=== PATIENT | female | born 1975 | race Caucasian/White ===

== ENCOUNTER 2020-06-06 22:23 | Observation (INO) | payer OTHER, SELFPAY ==
--- NOTE | ~2020-06-06 | CT_ITS ---
EXAMINATION: CT abdomen pelvis w con DATE: 06/07/2020 00:35 INDICATION: Right lower quadrant abdominal pain. Nausea, vomiting, and diarrhea. TECHNIQUE: Computed tomography (CT) of the abdomen and pelvis was performed with 100 mL Omnipaque 350 intravenous contrast. Automated exposure control and iterative reconstruction technique were employe d. The dose-length product was 1231.16 mGy-cm. COMPARISON: None. FINDINGS: The visualized portions of the lung bases are clear without pneumonia or pleural effusion. The heart size is normal. No pericardial effusion. The liver is normal. There are changes of cholecys tectomy. The spleen, pancreas, adrenal glands, and kidneys are normal. There are multiple appendicoli ths in the appendix, which is fluid-filled and dilated to 12 mm with adjacent fat stranding, consiste nt with appendicitis. There is trace ascites in right paracolic gutter. There are no pathologically e nlarged lymph nodes. There is a 14 mm uterine fibroid. There is mild lumbar spondylosis. IMPRESSION: 1. Acute appendicitis. Reviewed, dictated and finalized at location A. [employer] IMPRESSION: 1. Acute appendicitis.
[2020-06-06 22:30] VITALS: BP 119/86; PULSE 78; RESP 22; TEMP 36.8; O2SAT 100
[2020-06-06 23:02] LABS: Basophils Absolute Auto 0.1 K/mm3 (0.0-0.1); Basophils Percent Auto 0.3 % (0.2-1.2); Eosinophils Absolute Auto 0.1 K/mm3 (0-0.3); Eosinophils Percent Auto 0.5 % (0-4.4); Hematocrit 38.6 % (37.0-47.0); Hemoglobin 12.6 g/dL (12.0-15.0); Immature Granulocyte Absolute 0.09 K/mm3 (0.00-0.031); Immature Granulocyte Percent A 0.5 % (0-0.5); Lymphocytes Absolute Auto 2.32 K/mm3 (0.9-3.2); Lymphocytes Percent Auto 12.2 % (18.3-44.2); Mean Corpuscular HGB Conc 32.6 g/dl (32-36); Mean Corpuscular Hemoglobin 29.6 pg (26-34); Mean Corpuscular Volume 90.6 fl (80-100); Monocytes Absolute Auto 1.1 K/mm3 (0.1-0.6); Monocytes Percent Auto 5.8 % (2.6-8.5); Neutrophils Absolute Auto 15.3 K/mm3 (1.3-6.7); Neutrophils Percent Auto 80.7 % (45.5-73.1); Platelet Count Result 302 k/mm3 (150-375); Red Blood Count 4.26 M/mm3 (4.2-5.4); Red Cell Distribution Width 12.7 % (11.5-14.5); White Blood Count 18.9 K/mm3 (4.5-10.0)
[2020-06-06] MEDS: MORPHINE SULFATE (*CRX) 4 MG/ML INJ IV PUSH (23:05)
[2020-06-06] MEDS: SODIUM CHLORIDE 0.9% IV 1,000 ML 999 ML IV CONT (23:07)
[2020-06-06] MEDS: ONDANSETRON INJ 4 MG/2 ML VIAL IV PUSH (23:07)
[2020-06-06 23:09] VITALS: BP 104/70; PULSE 82; RESP 18; O2SAT 100
[2020-06-06 23:17] LABS: Alanine Aminotransferase 19 U/L (4-35); Albumin Level 4.3 g/dL (3.5-5.1); Alkaline Phosphatase 49 U/L (38-126); Anion Gap 8 mmol/L (8-16); Aspartate Amino Transferase 33 U/L (14-36); Bilirubin,Total 0.2 mg/dL (0.2-1.3); Blood Urea Nitrogen 14 mg/dL (7-17); Calcium 8.9 mg/dL (8.4-10.2); Carbon Dioxide 28 mmol/L (22-30); Chloride 100 mmol/L (98-107); Estimated CRCL calculation 58 ml/min; Estimated Glomerular Filt Rate > 60; Glucose 110 mg/dL (65-105); Lipase 71 U/L (23-300); Potassium 3.5 mmol/L (3.4-5.0); Sodium 136 mmol/L (137-145)
[2020-06-07] VITALS (12 sets, daily range): BP systolic 97–120; BP diastolic 49–72; PULSE 68–100; RESP 14–24; TEMP 36.1–37.1; O2SAT 94–100; BMI 26.4
[2020-06-07 00:34] LABS: Add Urine Microscopic? YES; Appearance Urine Clear (Clear); Bacteria Urine Trace /hpf; Bilirubin Urine Negative (Negative); Blood Urine Negative (Negative); Color Urine Straw (Yellow); Glucose Urine UA Negative (Negative); Ketones Urine Trace mg/dL (Negative); Leukocyte Esterase Ur Negative LEU/UL (Negative); Mucus Urine Rare /lpf; Nitrate Urine Negative (Negative); Protein Urine Negative (Negative); Specific Grav Ur 1.014 (1.001-1.035); Squamous Epithelial Cell Urine Rare /hpf (Few); Urobilinogen Urine Negative mg/dL (<2.0); WBC Urine 0-3 /hpf
[2020-06-07] MEDS: ONDANSETRON INJ 4 MG/2 ML VIAL IV PUSH (00:40)
[2020-06-07] MEDS: HYDROmorphone HCL INJ (*CRX) 1 MG/ML SYR IV PUSH (00:41)
--- NOTE | 2020-06-07 01:31 | ED.ABDPAIN ---
HPI - Abdominal Pain General Chief Complaint: Abdominal Pain Stated Complaint: abdominal pain Time Seen by Provider: 06/06/20 22:43 History of Present Illness HPI narrative: Patient is a 45-year-old female presents to the emergency department with a chief complaint of abdominal pain. Patient states that the pain has been pain throughout her abdomen started today states is now localized worse to the right lower quadrant. The patient states that she is not able to get comfortable whenever she gets any kind of bumps or movement that the pain is worse. Patient reports that she is had some diarrhea with this that she had a bit of nausea but no vomiting. Patient denies any other symptoms of chest pain shortness of breath denies fever denies chills. Patient states she last ate around 5 PM. The patient reports she has prior surgical history significant for cholecystectomy and she has had an ovary removed in the past. Related Data Allergies Allergy/AdvReac Type Severity Reaction Status Date / Time nitrofurantoin Allergy Mild Rash Verified 12/22/17 09:43 sulfamethoxazole Allergy Mild Rash Verified 12/22/17 09:43 trimethoprim Allergy Mild Rash Verified 12/22/17 09:43 Review of Systems Review of Systems: Narrative: CONSTITUTIONAL: Denies fever, chills, or sweats. EYES: Denies visual changes, redness, or discharge. ENT: Denies rhinorrhea, congestion, sore throat, or otalgia. CARDIOVASCULAR: Denies chest pain, palpitations, or edema. RESPIRATORY: Denies cough or dyspnea. GASTROINTESTINAL: Denies abdominal pain, nausea, vomiting, or diarrhea. GENITOURINARY: Denies dysuria or hematuria. SKIN: Denies rash or itching. MUSCULOSKELETAL: Denies back pain, joint pain, or myalgia. NEUROLOGIC: Denies headache, numbness, or weakness. PSYCHIATRIC: Denies anxiety or depression. A 10 system review of systems was completed on the patient and is negative except for what is stated in the HPI. Nursing and ancillary documentation was reviewed. PMFSH Social History Social History Gender identity (if verbalized by the patient): Female Comments Patient reports no significant past medical history History patient is had a cholecystectomy and a oophorectomy Social history patient denies illicit drug use Exam Narrative: Exam Narrative: GENERAL: Well-appearing, well-nourished, and in no acute distress. HEAD: Normocephalic, atraumatic. EYES: PERRLA and EOMI. ENT: Nares clear, no rhinorrhea or epistaxis. Mucous membranes moist. NECK: Supple. CHEST: Clear to auscultation. No respiratory distress. HEART: Regular rate and rhythm. No murmur heard. Normal peripheral pulses. ABDOMEN: Soft, tender to palpation in the right lower quadrant there is a slight rebound present, nondistended, normal active bowel sounds. EXTREMITIES: Normal range of motion. No edema. SKIN: Warm, dry, no rash. NEURO: No focal deficits. Alert and oriented x3. PSYCH: Normal mood and affect. Course Course Emergency Course: Patient's laboratory studies showed a white blood cell count of 18,000. CT scan of the abdomen pelvis showed evidence of acute appendicitis. Patient's pain was initially treated with IV morphine but had limited success with that she was given a milligram of IV Dilaudid which has had significant improvement in the patient's pain. Patient's nausea was controlled with IV Zofran. Patient was started on IV Zosyn in the emergency department the case was discussed with the general surgeon on-call and the patient was admitted to the surgical service for planned appendectomy tomorrow Vital Signs Vital signs: Vital Signs Temperature 36.8 C 06/06/20 22:30 Pulse Rate 78 06/06/20 22:30 Respiratory Rate 22 H 06/06/20 22:30 Blood Pressure 119/86 06/06/20 22:30 Pulse Oximetry 100 06/06/20 22:30 Temperature 36.8 C 06/06/20 22:30 Pulse Rate 81 06/07/20 01:24 Respiratory Rate 16 06/07/20 01:24 Blood Pressure 111/72 06/07/20 01:24 Pulse Oximetry 1
--- NOTE | 2020-06-07 01:55 | PC.NURSE ---
This patient, Lindy Jimenez, was admitted to Medical Room 347-. Patient/family oriented to hospital policies and general routines including ID bracelet, bed and alarms, visiting hours, pain management, procedures, bathroom and other care routines, personal items, smoking policy, room service/diet, and visiting hours. Information on how to activate the Rapid Response Team has been discussed. Patient/Family are encouraged to report perceived risks to care and to ask questions if they do not understand what they are told or what they should do.
[2020-06-07] MEDS: HYDROmorphone HCL INJ (*CRX) 1 MG/ML SYR 0.5 MG IV PUSH ×2 (03:27→06:56)
--- NOTE | 2020-06-07 06:29 | WPDANESEPP ---
Anes - Eval Pre Procedure Procedure: Laparoscopic appendectomy Date/Time: 06/07/20 06:29 Surgeon: Isma Pre Op Diagnosis: Acute appendicitis Patient Data Age: 45 Gender: F Height: 5 ft 1 in Weight: 63.3 kg Last Vital Signs Temp 98.4 F 06/07/20 02:10 Pulse 70 06/07/20 02:10 Resp 14 06/07/20 02:10 BP 114/68 06/07/20 02:10 Pulse Ox 100 06/07/20 02:10 Allergies Allergy/AdvReac Type Severity Reaction Status Date / Time nitrofurantoin Allergy Mild Nausea and Verified 06/07/20 02:30 Vomiting sulfamethoxazole Allergy Mild Nausea and Verified 06/07/20 02:30 Vomiting trimethoprim Allergy Mild Nausea and Verified 06/07/20 02:30 Vomiting Home Medications Medication Instructions Recorded Confirmed Type alprazolam 0.25 mg PO QID PRN 06/07/20 06/07/20 History bupropion HCl 150 mg PO QAM 06/07/20 06/07/20 History buspirone 10 mg PO TIDWMEAL 06/07/20 06/07/20 History drospirenone-ethinyl estradiol 1 tablet PO DAILY 06/07/20 06/07/20 History [Zainab] ergocalciferol (vitamin D2) 50,000 unit PO 2XW 06/07/20 06/07/20 History [Vitamin D2] escitalopram oxalate 20 mg PO DAILY 06/07/20 06/07/20 History liothyronine 50 mcg PO DAILY 06/07/20 06/07/20 History lisdexamfetamine [Vyvanse] 60 mg PO DAILY 06/07/20 06/07/20 History metoprolol tartrate 12.5 mg PO DAILY 06/07/20 06/07/20 History montelukast 10 mg PO DAILY 06/07/20 06/07/20 History thyroid (pork) [Verbena Thyroid] 90 mg PO DAILY 06/07/20 06/07/20 History trazodone 50 mg PO HS 06/07/20 06/07/20 History Laboratory Tests 06/06/20 06/06/20 06/07/20 22:57 22:57 00:19 WBC 18.9 K/mm3 H K/mm3 (4.5-10.0) RBC 4.26 M/mm3 M/mm3 (4.2-5.4) Hgb 12.6 g/dL g/dL (12.0-15.0) Hct 38.6 % % (37.0-47.0) MCV 90.6 fl fl (80-100) MCH 29.6 pg pg (26-34) MCHC 32.6 g/dl g/dl (32-36) RDW 12.7 % % (11.5-14.5) Plt Count 302 k/mm3 k/mm3 (150-375) MPV 9.0 fl fl (7.4-10.4) Immature Gran % (Auto) 0.5 % % (0-0.5) Neut % (Auto) 80.7 % H % (45.5-73.1) Lymph % (Auto) 12.2 % L % (18.3-44.2) [place] % (Auto) 5.8 % % (2.6-8.5) Eos % (Auto) 0.5 % % (0-4.4) Baso % (Auto) 0.3 % % (0.2-1.2) Lymph # (Auto) 2.32 K/mm3 K/mm3 (0.9-3.2) [place] # (Auto) 1.1 K/mm3 H K/mm3 (0.1-0.6) Eos # (Auto) 0.1 K/mm3 K/mm3 (0-0.3) Baso # (Auto) 0.1 K/mm3 K/mm3 (0.0-0.1) Abs Immat Gran (auto) 0.09 K/mm3 H K/mm3 (0.00-0.031) Absolute Neuts (auto) 15.3 K/mm3 H K/mm3 (1.3-6.7) Absolute Nucleated RBC 0.0 K/mm3 K/mm3 (0.0-0.012) Nucleated RBC % 0.0 % % (0.0-0.2) Sodium 136 mmol/L L mmol/L (137-145) Potassium 3.5 mmol/L mmol/L (3.4-5.0) Chloride 100 mmol/L mmol/L (98-107) Carbon Dioxide 28 mmol/L mmol/L (22-30) Anion Gap 8 mmol/L mmol/L (8-16) BUN 14 mg/dL mg/dL (7-17) Creatinine 0.80 mg/dL mg/dL (0.7-1.0) Estim Creat Clear Calc 58 ml/min ml/min Estimated GFR > 60 (59 - ) Glucose 110 mg/dL H mg/dL (65-105) Calcium 8.9 mg/dL mg/dL (8.4-10.2) Total Bilirubin 0.2 mg/dL mg/dL (0.2-1.3) AST 33 U/L U/L (14-36) ALT 19 U/L U/L (4-35) Alkaline Phosphatase 49 U/L U/L (38-126) Total Protein 7.0 g/dL g/dL (6.3-8.2) Albumin 4.3 g/dL g/dL (3.5-5.1) Lipase 71 U/L U/L (23-300) Urine Color Straw (Yellow) Urine Appearance Clear (Clear) Urine pH 7.0 (5.0-9.0) Ur Specific [place] 1.014 (1.001-1.035) Urine Protein Negative mg/dL mg/dL (Negative) Urine Glucose (UA) Negative mg/dL mg/dL (Negative) Urine Ketones Trace mg/dL mg/dL (Negative) Ur Blood (Man)
--- NOTE | 2020-06-07 07:41 | PC.NURSE ---
Patient to pre-op via bed.
--- NOTE | 2020-06-07 07:52 | PM.IMHP ---
H&P: HPI History of Present Illness Date/Time: 06/07/20 07:52 Chief complaint: Acute appendicitis Narrative: Lindy Jimenez is a 45 year old female presenting c 1 d h/o RLQ abd pain. Pt reports the pain was more diffuse in nature initially but has now localized to RLQ. Pt reports pain is constant but worsened by movement. Pt reports assoc poor appetite, nausea, diarrhea. Pt denies f/c, emesis. Pt denies any previous similar episodes. Review of Systems Constitutional: Constitutional: Reports anorexia, Denies body ache(s), Denies chills, Denies fatigue, Denies fever(s), Denies headache(s), Denies lethargy, Reports poor appetite, Denies weakness, Denies weight gain and Denies weight loss Eyes: Eyes: Reports no additional eye complaints ENT: Reports system reviewed and no additional complaints, except as documented Cardiovascular: Cardiovascular: Reports no additional cardiovascular complaints Respiratory: Respiratory: Reports no additional respiratory complaints Gastrointestinal: Gastrointestinal: Reports abdominal pain, Reports bloating, Reports GI cramping, Reports diarrhea, Reports nausea and Denies vomiting Genitourinary: Genitourinary: Reports no additional female genitourinary complaints Musculoskeletal: Musculoskeletal: Reports no additional musculoskeletal complaints Integumentary/Breasts: Skin/Breast: Reports system reviewed and no additional complaints, except as docu Neurologic: Reports system reviewed and no additional complaints, except as documented Psychiatric: Psychiatric: Reports no additional psychiatric complaints Endocrine: Endocrine: Reports no additional endocrine complaints Hematologic/Lymphatic: Hematologic/Lymphatic: Reports no additional hematologic/lymphatic complaints Allergic/Immunologic: Allergic/Immunologic: Reports no additional allergic/immunologic complaints [facility] Past Medical History Medical History Acute appendicitis Anxiety and depression Endometriosis HTN (hypertension) with goal to be determined Surgical History Surgical History H/O oophorectomy H/O thyroidectomy Family History Family History Father Diabetes mellitus Heart attack High cholesterol Mother Breast carcinoma RLS (restless legs syndrome) High cholesterol Social History Social History Smoking status: Never smoker Alcohol intake: current Drinks per week: 3 Substance use: never Gender identity (if verbalized by the patient): Female Sexual Orientation (if Verbalized by the Patient): Straight or Heterosexual Spiritual care concerns: No Meds Home Medications and Allergies Home Medications Medication Instructions Recorded Confirmed Type alprazolam 0.25 mg PO QID PRN 06/07/20 06/07/20 History bupropion HCl 150 mg PO QAM 06/07/20 06/07/20 History buspirone 10 mg PO TIDWMEAL 06/07/20 06/07/20 History drospirenone-ethinyl estradiol 1 tablet PO DAILY 06/07/20 06/07/20 History [Zainab] ergocalciferol (vitamin D2) 50,000 unit PO 2XW 06/07/20 06/07/20 History [Vitamin D2] escitalopram oxalate 20 mg PO DAILY 06/07/20 06/07/20 History liothyronine 50 mcg PO DAILY 06/07/20 06/07/20 History lisdexamfetamine [Vyvanse] 60 mg PO DAILY 06/07/20 06/07/20 History metoprolol tartrate 12.5 mg PO DAILY 06/07/20 06/07/20 History montelukast 10 mg PO DAILY 06/07/20 06/07/20 History thyroid (pork) [[place] Thyroid] 90 mg PO DAILY 06/07/20 06/07/20 History trazodone 50 mg PO HS 06/07/20 06/07/20 History Allergies Allergy/AdvReac Type Severity Reaction Status Date / Time nitrofurantoin Allergy Mild Nausea and Verified 06/07/20 02:30 Vomiting sulfamethoxazole Allergy Mild Nausea and Verified 06/07/20 02:30 Vomiting trimethoprim Allergy Mild Nausea and Verified 06/07/20 02:30
--- NOTE | 2020-06-07 07:58 | WPDHPUPDATE1 ---
History and Physical Update Update Date/Time: 06/07/20 07:58 History and Physical has been reviewed, including an updated exam of the patient. There are NO changes in the patient's condition. Risks, benefits, and alternatives have been discussed and questions answered. Patient agrees to proceed with procedure.
--- NOTE | 2020-06-07 08:23 | WPDANESEFPP ---
Anes - Eval Final PreProcedure Day of Procedure 06/07/20 08:23 Patient weight: overweight Heart: regular rate and rhythm Lungs: clear to auscultation and normal air movement Airway: Mallampati scale class II Neurological: alert and oriented Last oral intake: >/= 8 hours ASA classification: II Emergent: no Anesthetic plan: proceed Anesthesia type and monitoring: general ETT Informed Consent: The patient's anesthetic plan and its attendant risks and benefits were discussed with the patient/family/POA. Questions were solicited and answers provided to the satisfaction of the patient/family/POA.
--- NOTE | 2020-06-07 08:55 | P.OP_ITS ---
Procedure Note - Detailed Date of procedure: 06/07/20 Pre-op diagnosis: Acute appendicitis Post-op diagnosis: same Procedure performed: Laparoscopic appendectomy Description of procedure: The patient was brought into the operating room placed in the supine position. After adequate induction of general anesthesia, the patient was prepped and draped in normal sterile fashion. A time-out was then done to verify the patient's identity as well as the procedure being performed. I began by making a 5 mm incision in the infraumbilical region. A 5 mm Optiview trocar within used to gain access into the peritoneal cavity. Once into the peritoneal cavity, CO2 gas was insufflated. After adequate pneumoperitoneum was achieved, the laparoscope was placed into the 5 mm trocar. Under direct visualization, I went ahead and placed a further 5 mm suprapubic port as well as a 12 mm port in the left lower abdomen. At this point, I was able to visualize cecum. The cecum was retracted both cephalad and medial, and this allowed us to expose the appendix. The appendix was noted to be very dilated, injected, and inflamed. The appendix was adhesed to the right lateral side wall. There was no obvious perforation of the appendix. I then bluntly dissected the appenix off the right lateral side wall. I then grasped the appendix near the tip of the appendix and retracted both anterior and lateral. This allowed exposure of the base of the appendix with the cecum. I then created a window with the Jessica dissector between the appendix and the mesoappendix at the base of the appendix. Once this was achieved, a vascular staple load on the Endo-TATIANA was placed through the 12 mm port site and subsequently transected the mesoappendix. I then reloaded the Endo-TATIANA with a blue staple load and transected the base of the appendix with the cecum. Once the appendiceal specimen was completely detached, a Endo pouch was placed through the 12 mm port site. The appendix was placed into the Endo pouch and removed through the 12 mm port site. The appendix will now be sent to pathology for further review. I then visualized the right lower quadrant, both staple lines were noted to be intact and hemostatic. No other pathology was noted in the right lower quadrant or pelvis. I then moved the laparoscope to the 5 mm suprapubic port. I then visualized our port of entry at the 5 mm infraumbilical site. No iatrogenic injury or other pa thology was seen in the upper abdomen. I then desufflated the abdomen and all ports were removed. The fascia of the 12 mm port site was closed with an 0 Vicryl figure of 8 suture. All port sites were then closed with 4 O Monocryl subcuticular suture. The patient tolerated the procedure well and was extubated in the operating room postoperatively. The patient will be transferred to the recovery room in stable condition. Anesthesia: GETA Surgeon: Elvia Ashby MD Estimated blood loss (mL): 5 Drains: No Packing: No Pathology: yes Complications: No immediate complications Condition: stable Disposition: PACU Findings: Acute uncomplicated appendicitis
[2020-06-07] MEDS: LACTATED RINGERS 1,000 ML 30 ML IV CONT ×2 (09:22→09:23)
--- NOTE | 2020-06-07 09:45 | PC.NURSE ---
Patient back from surgery via bed. Patient is resting comfortably and has no questions at this time.
--- NOTE | 2020-06-07 09:59 | SUR.OPER ---
EBL:5cc
[2020-06-07] MEDS: buPROPion HCL XL (24 HR) 150 MG TABCR PO (11:40)
[2020-06-07] MEDS: MONTELUKAST SODIUM 10 MG TABLET PO (11:40)
[2020-06-07] MEDS: METOPROLOL TARTRATE 12.5 MG TABLET PO (11:40)
[2020-06-07] MEDS: ESCITALOPRAM OXALATE 10 MG TABLET 20 MG PO (11:41)
[2020-06-07] MEDS: DOCUSATE SODIUM 100 MG CAPSULE PO (11:41)
[2020-06-07] MEDS: busPIRone HCL 10 MG TABLET PO (11:43)
[2020-06-07] MEDS: HYDROcodone/acetaminophen (*CRX) 5-325 MG TABLET 1 TAB PO (14:20)
--- NOTE | 2020-06-11 11:39 | PM.DS ---
DS: Admitting Diagnosis Admitting Diagnosis Admitting Diagnosis: Acute appendicitis DS: Discharge Diagnosis Discharge Diagnosis (1) Acute appendicitis: Qualifiers: Acute appendicitis type: unspecified acute appendicitis type Qualified Code(s): K35.80 - Unspecified acute appendicitis Code(s): K35.80 - Unspecified acute appendicitis Status: Acute Assessment and Plan: s/p lap appy, cont routine postop care, f/u 2 wks DS: Summary Hospital Course Reason for hospitalization: acute appedicitis Hospital Course: Pt presented to ED c/o severe R sided abd pain. Workup and imaging c/w acute appendicitis. Pt admitted to surgical team and setup for urgent appendectomy. Pt underwent lap appy on 06/07, please see full op report for details. Pt did well postop and will be dc'd on po analgesia and stool softeners. Pt will fu in 2 wks. Status at Discharge Functional status at discharge: independent ambulation Overall status at discharge: patient is progressing back to baseline Time Spent with Patient Time attestation: Total time spent providing and/or coordinating discharge services: Time spent: Less than 30 minutes Exam Const: General: cooperative, healthy appearing, comfortable and no acute distress Resp: Effort & Inspection: normal respiratory effort Auscultation: clear to auscultation bilaterally Cardio: Rate: regular rate Rhythm: regular rhythm GI: Inspection: normal to inspection and incision GI Palp: Yes Soft to palpation, Yes Tenderness to palpation present (GI) and No Guarding due to palpation present (GI) Other: soft, sl dist, raad TTP, incisions C/D/I DS: Data Data Completed and Pending Pending studies at discharge: Pending at discharge 06/07/20 08:30 Surgical [PTH] Routine Discharge Plan Discharge Attending physician on discharge: Elvia Ashby Consulting providers: ; Mani Vickers V. Discharging Clinician: Elvia Ashby Anticipated Discharge Date/Time: 06/07/20 12:00 Patient Disposition: Home, Self-Care Activity: as tolerated and other - see discharge instructions Diet: regular Wound Care Instructions: follow printed instructions Discharge Instructions: DISCHARGE INSTRUCTION SHEET FOR HERNIA, GALLBLADDER AND APPENDIX SURGERIES DR. ASHBY PATIENT TO TAKE HOME 1. May shower in 24 hours, no soaking in bath x 2weeks. 2. Call office for: Wound increasingly painful or bleeding Vomiting Fever of greater than 101 degrees 3. If no bowel movement for three days, take 1 oz. (30 ml) Milk of Magnesia or MiraLax 17g 1 to 2 times daily. 4. No heavy lifting > 10-15 pounds x weeks for hernia repairs and 2 weeks for laparoscopic cholecystectomy or appendectomy. 5. No driving for 3 days or while taking narcotic pain medications. 6. Ice to surgical site for 48 hours (30 min on, then 30 min off). 7. Up walking 10-30 minutes three times per day. 8. Resume previous home medications. 9. Follow-up 10-14 days in office for wound check or as previously scheduled. ([id number]) 10. Oral pain medications prescription to be sent to pharmacy. Take Tylenol 500mg every 6 hours and Ibuprofen 600mg every 6 hours for the first 2 days, then as needed. 11. NUTRITION: Start out by drinking fluids and increase your diet as tolerated. If you experience nausea, try dry toast, crackers, and 7-UP. If nausea or vomiting persists, contact your surgeon?s office. 12. Gallbladders-Low Fat Diet for 2 weeks (send care note of low fat diet) 13. Inguinal Hernias-wear scrotal support for 48 hours 14. Abdominal Hernias-if sent home with abdominal binder, wear for the first 2 weeks (may remove to shower or at night to sleep).
== END 2020-06-07 16:35 | disposition home or self-care (01) ==
LOC: ANHED 06-07 00:52 → ANH3MED 06-07 01:27
PROVIDERS: Admitting Provider Surgery; Emergency Provider Emergency Medicine; Visit Provider Surgery
PROC: 0DTJ4ZZ Resection of Appendix, Percutaneous Endoscopic Approach (ICD-10-PCS; CPT 44970; principal; 2020-06-07 08:00)
DX: K35.890 Other acute appendicitis without perforation or gangrene (principal); I10 Essential (primary) hypertension
CPT/HCPCS: 44970; 36415; 74177; 80053; 81001; 81025; 83690; 85025; 88304; 96361; 96365; 96374; 96375; 96376; 99285; A9270; G0378; J0330; J1100; J1170; J2250; J2270; J2405; J2543; J2704; J2710; J3010; J7030; J7120; Q9967

== ENCOUNTER → 2021-03-08 11:51 | Outpatient (CLI) | payer OTHER, SELFPAY ==
--- NOTE | ~2021-03-08 | US_ITS ---
EXAMINATION: US thyroid EXAM DATE: 03/08/2021 12:11 INDICATION: Thyroid mass . TECHNIQUE: Multiple grayscale and Doppler images of the thyroid were obtained (by a technologist who performed the scan) and subsequently reviewed. Individual nodules and recommendations may be reporte d in accordance with TI-RADS system as designated by the 2017 ACR White Paper TI-RADS committee. Comp arison is made to prior examination from 10/28/2017. FINDINGS: Right thyroid lobe measures 3.5 x 1.0 x 1.2 cm, the left measuring 4.3 x 1.0 x 1.2 cm. Homogeneous th yroid echogenicity. In the left thyroid lobe midpole there is a nodule measuring 9 x 7 x 6 mm, solid (2 points), hypoecho ic (2 points), wider than tall, smooth well defined margin, without echogenic foci, category TR4 for this nodule. This is unchanged compared to previous examination in 2018, consistent with benign hist ology. IMPRESSION: No change in right thyroid lobe nodule likely benign. Reviewed, dictated and finalized at location A.
== END ==
PROVIDERS: PCP Physician Assistant; Visit Provider Physician Assistant
DX: E07.9 Disorder of thyroid, unspecified (principal)
CPT/HCPCS: 76536

== ENCOUNTER → 2021-04-01 13:49 | Outpatient (CLI) | payer OTHER, SELFPAY ==
--- NOTE | ~2021-04-01 | MM_ITS ---
EXAMINATION: MM screening kerry BI w radha HISTORY: Screening mammogram TECHNIQUE: Craniocaudal and mediolateral oblique 3-D tomosynthesis images were obtained and synthetic 2-D images were generated. Bilateral rotated lateral CC views. CAD analysis was submitted and inter preted. COMPARISON: 10/28/2017 bilateral digital screening mammogram BREAST PARENCHYMAL COMPOSITION: There are scattered areas of fibroglandular density. FINDINGS: There is no evidence of suspicious mass, calcification, or architectural distortion to sugg est malignancy in either breast. There has been no suspicious interval change. IMPRESSION: 1. No mammographic evidence of malignancy. 2. Recommend routine screening mammography in one year. BI-RADS Category 1: Negative Reviewed, dictated and finalized at location A.
== END ==
PROVIDERS: PCP Physician Assistant; Visit Provider Physician Assistant
DX: Z12.31 Encounter for screening mammogram for malignant neoplasm of breast (principal)
CPT/HCPCS: 77063; 77067

== ENCOUNTER 2021-08-17 10:36 | Emergency (ER) | payer OTHER, SELFPAY ==
--- NOTE | 2021-08-17 10:44 | ED.GENADULT ---
HPI - General Adult General Chief complaint: Eye Problems Stated complaint: rt eye irritation Time Seen by Provider: 08/17/21 10:44 Source: patient Mode of arrival: ambulatory Limitations: no limitations History of Present Illness HPI narrative: 46-year-old female patient presents to [facility] with complaints of right eye irritation x4 days. Denies any trauma to the eye that she is aware of. Denies doing anything that she could have gotten a foreign body into the eye that she is aware of. Patient states suddenly on Thursday night she felt like something was in her eye and use some [id number] eyewash. Patient states the next day she can feel that it was swollen and woke up with some eye crusty's. Patient states is been somewhat painful and also has noticed the lymph node has been swollen near her right ear. Patient states she does wear glasses denies wearing contacts. Related Data Home Medications Medication Instructions Recorded Confirmed Vyvanse 60 mg PO DAILY 06/07/20 08/17/21 alprazolam 0.25 mg PO QID PRN 06/07/20 08/17/21 bupropion HCl 150 mg PO QAM 06/07/20 08/17/21 buspirone 10 mg PO TIDWMEAL 06/07/20 08/17/21 drospirenone-ethinyl estradiol 1 tablet PO DAILY 06/07/20 08/17/21 [Zainab] ergocalciferol (vitamin D2) 50,000 unit PO 2XW 06/07/20 08/17/21 escitalopram oxalate 20 mg PO DAILY 06/07/20 08/17/21 liothyronine 50 mcg PO DAILY 06/07/20 08/17/21 metoprolol tartrate 12.5 mg PO DAILY 06/07/20 08/17/21 montelukast 10 mg PO DAILY 06/07/20 08/17/21 thyroid (pork) [[place] Thyroid] 90 mg PO DAILY 06/07/20 08/17/21 trazodone 50 mg PO HS 06/07/20 08/17/21 Allergies Allergy/AdvReac Type Severity Reaction Status Date / Time nitrofurantoin Allergy Mild Nausea and Verified 08/17/21 11:11 Vomiting sulfamethoxazole Allergy Mild Nausea and Verified 08/17/21 11:11 Vomiting trimethoprim Allergy Mild Nausea and Verified 08/17/21 11:11 Vomiting Review of Systems Review of Systems: CONSTITUTIONAL: Denies fever, chills, or sweats. EYES: Denies visual changes, positive right eye redness, and clear discharge. ENT: Denies rhinorrhea, congestion, sore throat, or otalgia. CARDIOVASCULAR: Denies chest pain, palpitations, or edema. RESPIRATORY: Denies cough or dyspnea. GASTROINTESTINAL: Denies abdominal pain, nausea, vomiting, or diarrhea. GENITOURINARY: Denies dysuria or hematuria. SKIN: Denies rash or itching. MUSCULOSKELETAL: Denies back pain, joint pain, or myalgia. NEUROLOGIC: Denies headache, numbness, or weakness. PSYCHIATRIC: Denies anxiety or depression. [facility] Past Medical History Medical History Acute appendicitis Anxiety and depression Endometriosis HTN (hypertension) with goal to be determined Surgical History Surgical History H/O oophorectomy H/O thyroidectomy History of laparoscopic appendectomy 06/07/20 Family History Family History Father Diabetes mellitus Heart attack High cholesterol Mother Breast carcinoma RLS (restless legs syndrome) High cholesterol Social History Social History Smoking status: Never smoker Alcohol intake: current Drinks per week: 3 Substance use: never Gender identity (if verbalized by the patient): Female Sexual Orientation (if Verbalized by the Patient): Straight or Heterosexual Spiritual care concerns: No Comments At the time of my signature I agree with nursing past medical history, surgical, social, and family history. There is no relevant family history pertinent to the presenting complaint. Exam Narrative: GENERAL: Well-appearing, well-nourished, and in no acute distress. HEAD: Normocephalic, atraumatic. EYES: PERRLA and EOM intact without limitation or complaint of pain, no periorbital soft tissue swelling ,no e
[2021-08-17 10:49] VITALS: BP 137/83; PULSE 82; RESP 18; TEMP 36.6; O2SAT 100
== END 2021-08-17 11:19 | disposition home or self-care (01) ==
PROVIDERS: Emergency Provider Nurse Practitioner Family; PCP Physician Assistant
DX: H10.31 Unspecified acute conjunctivitis, right eye (principal); N80.9 Endometriosis, unspecified; I10 Essential (primary) hypertension; F41.9 Anxiety disorder, unspecified; F32.A Depression, unspecified
CPT/HCPCS: 99213; A9270; G0463

== ENCOUNTER 2022-05-23 12:46 | Emergency (ER) | payer BC, SELFPAY ==
[2022-05-23 12:55] VITALS: BP 138/81; PULSE 105; RESP 16; TEMP 36.6; O2SAT 97
--- NOTE | 2022-05-23 13:00 | ED.URI ---
HPI - URI/Sore Throat General Chief Complaint: Upper Respiratory Infection Stated Complaint: cough Time Seen by Provider: 05/23/22 13:00 Source: patient Mode of arrival: ambulatory Limitations: no limitations History of Present Illness HPI Narrative: Ms. Jimenez is a 47-year-old female patient presenting to the clinic today with complaints of cough and nasal congestion. She reports that she feels as though she has nasal drainage going back over throat creating the cough. She denies any fever chills. Denies any known sick contacts. Reports that this has been going off and on for the last 2-3 weeks. MD elicited complaint: cough and nasal congestion Related Data Home Medications Medication Instructions Recorded Confirmed alprazolam 0.25 mg tablet 0.25 mg PO QID PRN Anxiety 06/07/20 08/17/21 bupropion HCl 150 mg 24 hr tablet, 150 mg PO QAM 06/07/20 08/17/21 extended release buspirone 10 mg tablet 10 mg PO TIDWMEAL 06/07/20 08/17/21 drospirenone 3 mg-ethinyl 1 tablet PO DAILY 06/07/20 08/17/21 estradiol 0.03 mg tablet (Zainab) ergocalciferol (vitamin D2) 25,000 50,000 unit PO 2XW 06/07/20 08/17/21 unit capsule escitalopram oxalate 20 mg tablet 20 mg PO DAILY 06/07/20 08/17/21 liothyronine 50 mcg tablet 50 mcg PO DAILY 06/07/20 08/17/21 lisdexamfetamine 60 mg capsule 60 mg PO DAILY 06/07/20 08/17/21 (Vyvanse) metoprolol tartrate 25 mg tablet 12.5 mg PO DAILY 06/07/20 08/17/21 montelukast 10 mg tablet 10 mg PO DAILY 06/07/20 08/17/21 thyroid (pork) 90 mg tablet 90 mg PO DAILY 06/07/20 08/17/21 ([place] Thyroid) trazodone 50 mg tablet 50 mg PO HS 06/07/20 08/17/21 Allergies Allergy/AdvReac Type Severity Reaction Status Date / Time nitrofurantoin Allergy Mild Nausea and Verified 05/23/22 12:55 Vomiting sulfamethoxazole Allergy Mild Nausea and Verified 05/23/22 12:55 Vomiting trimethoprim Allergy Mild Nausea and Verified 05/23/22 12:55 Vomiting Review of Systems Review of Systems: Pertinent positives per HPI. Patient denies any fever, chills, rash, headache, visual changes, dizziness, cough, shortness of breath, chest pain, palpitations, nausea, vomiting, diarrhea, constipation, abdominal pain, or any urinary issues. PMFSH Past Medical History Medical History Acute appendicitis Anxiety and depression Endometriosis HTN (hypertension) with goal to be determined Surgical History Surgical History H/O oophorectomy H/O thyroidectomy History of laparoscopic appendectomy 06/07/20 Family History Family History Father Diabetes mellitus Heart attack High cholesterol Mother Breast carcinoma RLS (restless legs syndrome) High cholesterol Social History Social History Smoking status: Never smoker Alcohol intake: current Drinks per week: 3 Substance use: never Gender identity (if verbalized by the patient): Female Sexual Orientation (if Verbalized by the Patient): Straight or Heterosexual Spiritual care concerns: No Comments At the time of my signature, I reviewed and agree with the nursing past medical, surgical, social, and family history. There is no relevant family history pertinent to the patient complaint. Exam Narrative: General: Well-developed, well nourished, in no apparent distress Head: Normocephalic, atraumatic Eyes: Pupils equally round and reactive to light bilaterally, EOM intact, sclera and conjunctive clear, no discharge, lids normal Ears: TMs intact and clear, ear canals clear, no drainage, grossly hearing normal. Nose: Nares patent, clear nasal discharge, no inflammation, no sinus tenderness. Mouth: Oral pharynx without lesions or masses, good dentition, MMM. Postnasal drip Neck: Supple, trachea midlin
[2022-05-23 13:01] VITALS: BP 138/81; PULSE 105; RESP 16; TEMP 36.6; O2SAT 97
== END 2022-05-23 13:06 | disposition home or self-care (01) ==
PROVIDERS: Emergency Provider Nurse Practitioner Family
DX: J00 Acute nasopharyngitis [common cold] (principal); R09.82 Postnasal drip; F41.9 Anxiety disorder, unspecified; F32.9 Major depressive disorder, single episode, unspecified; I10 Essential (primary) hypertension
CPT/HCPCS: 99213; G0463